=== PATIENT | female | born 1980 | race Caucasian/White ===

== ENCOUNTER → 2018-02-25 13:53 | Outpatient (CLI) | payer OTHER, SELFPAY ==
--- NOTE | 2018-02-25 | DI.US.S_ITS ---
ULTRASOUND OF LEFT BREAST: 02/25/2018 CLINICAL: Diffuse left breast pain. Comparison is made to exams dated: 02/25/2018 mammogram - [facility] and 10/22/2017 ultrasound - [facility]. Color flow ultrasound of the left breast was performed on the area of interest. IMPRESSION: NEGATIVE There is no sonographic evidence of malignancy. There is no mammographic or sonographic abnormality seen in the left breast to correspond with the pain, however, clinical followup is recommended. Return to annual mammogram screening schedule is recommended. This exam was interpreted at Station ID: [id number]. Electronically Signed By: Diane Muniz M.D. lk/:02/25/2018 15:19:34 letter sent: Clinical Evaluation Ultrasound BI-RADS: 1 Negative
--- NOTE | 2018-02-25 | DI.MG.S_ITS ---
BILATERAL DIGITAL DIAGNOSTIC MAMMOGRAM 3D/2D: 02/25/2018 CLINICAL: Left breast pain. Comparison is made to exam dated: 10/22/2017 ultrasound - [facility]. There are scattered fibroglandular elements in both breasts. No significant masses, calcifications, or other findings are seen in either breast. IMPRESSION: INCOMPLETE: NEEDS ADDITIONAL IMAGING EVALUATION There is no mammographic abnormality seen in the left breast to correspond with the pain, however, ultrasound is recommended. This exam was interpreted at Station ID: [id number]. NOTE: For mammograms, a report in lay terms will be sent to the patient. Approximately 15% of breast malignancies will not be visualized mammographically. In the management of a palpable breast mass, a negative mammogram must not discourage biopsy of a clinically suspicious lesion. Electronically Signed By: Diane dunn/santa:02/25/2018 15:00:36 letter sent: Additional Imaging Needed ACR BI-RADS Category 0: Incomplete [id number]
== END ==
PROVIDERS: Visit Provider Surgery
DX: R92.8 Other abnormal and inconclusive findings on diagnostic imaging of breast (principal); N64.4 Mastodynia
CPT/HCPCS: 76642; 77066; G0279

== ENCOUNTER → 2020-04-07 08:43 | Outpatient (CLI) | payer OTHER, SELFPAY ==
--- NOTE | 2020-04-07 | DI.MG.S_ITS ---
BILATERAL DIGITAL DIAGNOSTIC MAMMOGRAM 3D/2D: 04/07/2020 CLINICAL: Bilateral pain and discharge. Comparison is made to exam dated: 02/25/2018 [facility]. There are scattered fibroglandular elements in both breasts. No significant masses, calcifications, or other findings are seen in either breast. IMPRESSION: INCOMPLETE: NEEDS ADDITIONAL IMAGING EVALUATION No suspicious mammographic finding. Ultrasound will be performed at the patient's area of pain/concern. This exam was interpreted at Station ID: [id number]. NOTE: For mammograms, a report in lay terms will be sent to the patient. Approximately 15% of breast malignancies will not be visualized mammographically. In the management of a palpable breast mass, a negative mammogram must not discourage biopsy of a clinically suspicious lesion. Electronically Signed By: Jonathan Morgan M.D. jr/:04/07/2020 09:37:57 copy to: JENNIFER PEMBERTON ACR BI-RADS Category 0: Incomplete [id number]
--- NOTE | 2020-04-07 | DI.US.S_ITS ---
COMPLETE ULTRASOUND OF RIGHT BREAST AND AXILLA: 04/07/2020 CLINICAL: Diffuse right breast pain. Comparison is made to exams dated: 04/07/2020 mammogram, 02/25/2018 mammogram - [facility], and 10/22/2017 ultrasound - [facility]. Color flow and real-time ultrasound of the right breast four quadrants, retroareolar, and axilla regions were performed. Kc scale images of the real-time examination were reviewed. No significant abnormalities were seen sonographically in the right breast or the right axilla. IMPRESSION: NEGATIVE There is no sonographic evidence of malignancy. Return to annual mammogram screening schedule is recommended. This exam was interpreted at Station ID: [id number]. Electronically Signed By: Jonathan Morgan M.D., jr/santa:04/07/2020 10:55:06 copy to: JENNIFER PEM[facility]ERT[facility] letter sent: Normal Exam Ultrasound BI-RADS: 1 Negative
--- NOTE | 2020-04-07 | DI.US.S_ITS ---
ULTRASOUND OF LEFT BREAST: 04/07/2020 CLINICAL: Diffuse left breast pain. Comparison is made to exams dated: 04/07/2020 mammogram, 02/25/2018 ultrasound, 02/25/2018 mammogram - [facility], and 10/22/2017 ultrasound - [facility]. Color flow and real-time ultrasound of the left breast were performed. Kc scale images of the real-time examination were reviewed. There is a 1 cm taller than wide irregular mass with an angular margin in the left breast at 1 o'clock posterior depth (measured 8 cm from the nipple by the consumer marketing manager). This irregular mass is hypoechoic with posterior acoustic shadowing. IMPRESSION: SUSPICIOUS OF MALIGNANCY Mass in the left breast is at a low suspicion for malignancy. Ulrasound guided biopsy is recommended. This exam was interpreted at Station ID: [id number]. Electronically Signed By: Jonathan Morgan M.D. jr/:04/07/2020 10:59:24 copy to: JENNIFER PEMBERT[facility] letter sent: Biopsy Required Ultrasound BI-RADS: 4a Low suspicion for malignancy
== END ==
PROVIDERS: PCP Internal Medicine; Referring Provider Obstetrics & Gynecology; Visit Provider Obstetrics & Gynecology
DX: R92.8 Other abnormal and inconclusive findings on diagnostic imaging of breast (principal); N64.4 Mastodynia; N63.21 Unspecified lump in the left breast, upper outer quadrant
CPT/HCPCS: 76642; 77066; G0279

== ENCOUNTER → 2020-04-21 12:33 | Outpatient (CLI) | payer OTHER, SELFPAY ==
--- NOTE | 2020-04-21 | PATH_ITS ---
[facility] Accession Number: [id number] . 01 Material submitted: . breast - LEFT BREAST MASS 1:00 7 CMFN . 01 Diagnosis: Left Breast, 1 o'clock, 7 cm from Nipple, Core Biopsy: Fibroadenoma. Negative for significant atypia and malignancy. [facility] 04/22/2020 1535 Local . 01 Electronically signed: . Marlene Hoffman MD, Pathologist NPI- [id number] . 01 Gross description: . Received one formalin-filled container, labeled with the patient's name and designated left breast mass 1 o'clock 7 cm FN. The specimen is received with a plastic filter in container, sample loose in container and consists of multiple yellow-zheng portions of tissue which range in size from less than 0.1 cm to 1.2 x 0.5 x 0.4 cm. The specimen filtered and entirely submitted in one cassette. No collection date or time per container. Possible collection date and time per requisition: 04/21/20 at 1350. Total fixation time: Approximately 13 hours. ([id number]) /FRR 04/22/2020 0229 Local . 01 Pathologist provided ICD-10: D24.9 . 01 CPT . 193625 Specimen Comment: A duplicate report has been generated due to demographic updates. Performed at: [address] [address], [place], [place] [id number] MD Demetri Dickson MD Phone: [phone]
--- NOTE | 2020-04-21 12:38 | DI.US.S_ITS ---
ULTRASOUND GUIDED BIOPSY LEFT BREAST USING VACUUM DEVICE WITH MARKING DEVICE INSERTED: 04/21/2020 CLINICAL: Left breast mass. PATIENT CONSENT: Risks (minor bleeding, infection, vasovagal reaction and repeat procedure), benefits and alternatives were explained to the patient and written informed consent was obtained. Correlation is made to exams dated: 04/07/2020 ultrasound, 04/07/2020 mammogram, 02/25/2018 ultrasound, 02/25/2018 mammogram - [facility], and 10/22/2017 ultrasound - [facility]. An ultrasound guided biopsy using real-time ultrasound was performed for the mass located in the left breast at 1 o'clock middle depth. The skin was prepped in the usual manner. Local anesthetic was administered to the access site. A small incision was made in the breast. The abnormality was approached from the lateral aspect. A biopsy needle was placed adjacent to the abnormality under ultrasound guidance. Once the needle was documented to be in the correct location, four specimens were obtained using the Mammotome biopsy system. The patient received additional local anesthetic during the procedure. A clip was inserted into the biopsy cavity. The specimens were sent to the laboratory for pathological analysis. IMPRESSION: ULTRASOUND GUIDED BIOPSY BENIGN Ultrasound guided biopsy of the mass in the left breast at 1 o'clock middle depth was successful. Pathology indicates benign fibroadenoma (FA). Pathology results are concordant with imaging findings. Return to annual screening schedule at age 40 is recommended. This exam was interpreted at Station ID: [id number]. Vineet connolly,shaun/:04/25/2020 14:58:47 copy to: JENNIFER PEMBERT[facility]
--- NOTE | 2020-04-21 12:39 | DI.MG.S_ITS ---
UNILATERAL LEFT DIGITAL DIAGNOSTIC MAMMOGRAM POST-NEEDLE BIOPSY: 04/21/2020 CLINICAL: Left breast mass. Comparison is made to exams dated: 04/07/2020 ultrasound, 04/07/2020 mammogram, and 02/25/2018 mammogram - [facility]. There are scattered fibroglandular elements in left breast. There is a marker clip in the appropriate position in the left breast at 1 o'clock This marker clip placement is at the biopsy site. IMPRESSION: POST PROCEDURE MAMMOGRAM FOR MARKER PLACEMENT There was a successful marker clip placement in the left breast This exam was interpreted at Station ID: [id number]. NOTE: For mammograms, a report in lay terms will be sent to the patient. Approximately 15% of breast malignancies will not be visualized mammographically. In the management of a palpable breast mass, a negative mammogram must not discourage biopsy of a clinically suspicious lesion. Electronically Signed By: Vineet connolly/:04/21/2020 15:13:19 copy to: JENNIFER PEMBERTON ACR BI-RADS Category Post-procedure mammogram for marker placement
== END ==
PROVIDERS: PCP Internal Medicine; Referring Provider Internal Medicine; Visit Provider Obstetrics & Gynecology
DX: D24.2 Benign neoplasm of left breast (principal)
CPT/HCPCS: 19083; 77065

== ENCOUNTER → 2020-06-15 07:56 | Outpatient (CLI) | payer OTHER, SELFPAY ==
--- NOTE | 2020-06-15 | DI.MRI.S_ITS ---
BREAST MRI OF BOTH BREASTS- WITH CAD: 06/15/2020 CLINICAL: Breast MRI. Comparison is made to exams dated: 04/21/2020 mammogram, 04/07/2020 mammogram, and 02/25/2018 mammogram - [facility]. Interpretation of this MRI was correlated with available mammograms, ultrasounds, and clinical information. Informed consent was obtained from the patient. The patient was placed prone in a dedicated breast imaging coil. Precontrast axial STIR and 3D FLASH without fat saturation sequences were obtained. Both before and after bolus injection of contrast, sequential 1-minute axial 3D FLASH with fat saturation sequences for 3 time points, with subtraction images and maximum intensity projections (MIP's) generated. Delayed sagittal FLASH images with fat saturation were also obtained. Computer-aided detection, including computer algorithm analysis of MRI image data for lesion detection and characterization, pharmacokinetic analysis, with further physician review for interpretation, was performed. There is global asymmetry in the right breast, with a greater volume of breast parenchyma which demonstrates a greater degree of enhancement. Are numerous scattered tiny foci of enhancement measuring up to 3-4 millimeters in the right breast. Normal mild background parenchymal enhancement in the left breast. Right breast: No mass or suspicious non masslike enhancement. Normal appearance of the nipple areola complex. No neovascularity or skin thickening. No axillary or internal mammary lymphadenopathy. Left breast: No mass or suspicious non mass enhancement. Biopsy changes related to previous ultrasound-guided vacuum assisted left breast biopsy (pathology results consistent with fibroadenoma). Normal appearance of the nipple areola complex. No neovascularity or skin thickening. No axillary or internal mammary lymphadenopathy. IMPRESSION: NEGATIVE No suspicious abnormality to suggest malignancy. NO finding to explain left breast pain. Expected post-procedural changes related to left breast fibroadenoma biopsy. This exam was interpreted at Station ID: [id number]. Electronically Signed By: Jonathan Morgan M.D. jr/:06/15/2020 17:00:37 copy to: JENNIFER PEMBERTON letter sent: Normal Exam ACR BI-RADS Category 1: Negative [id number]
== END ==
PROVIDERS: PCP Internal Medicine; Referring Provider Internal Medicine; Visit Provider Internal Medicine
DX: N64.52 Nipple discharge (principal); N60.19 Diffuse cystic mastopathy of unspecified breast; N64.4 Mastodynia
CPT/HCPCS: 77049

== ENCOUNTER → 2024-07-10 10:54 | Outpatient (CLI) | payer OTHER, SELFPAY ==
[2024-07-10 12:30] LABS: Vitamin D 25 Hydroxy (D3) 30.5 ng/mL (30.0-100.0)
[2024-07-10 12:36] LABS: Follicle Stimulating Hormone 14.3 mIU/mL; Progesterone, Total 7.88 ng/mL
[2024-07-10 12:52] LABS: Estradiol, Total 79.6 pg/mL
[2024-07-10 13:02] LABS: Vitamin B12 > 1000 pg/mL (239-931)
== END ==
PROVIDERS: PCP Family Medicine; Referring Provider Obstetrics & Gynecology; Visit Provider Obstetrics & Gynecology
DX: R53.83 Other fatigue (principal); N95.1 Menopausal and female climacteric states
CPT/HCPCS: 36415; 82306; 82607; 82670; 83001; 84144; 84402; 84403

== ENCOUNTER → 2024-08-14 09:15 | Outpatient (CLI) | payer OTHER, SELFPAY ==
--- NOTE | 2024-08-14 | DI.US.S_ITS ---
LIMITED ULTRASOUND OF LEFT BREAST: 08/14/2024 CLINICAL: Palpable left breast lump. History of intermittent spontaneous left nipple discharge since 2017, previously characterized as milky, more recently clear discharge. Comparison is made to exams dated: 08/14/2024 mammogram - [facility], 01/31/2023 ultrasound, 08/02/2022 ultrasound, 08/02/2022 mammogram - outside facility, 06/15/2020 breast MRI, and 04/21/2020 mammogram - [facility]. Color flow and real-time ultrasound of the left breast 9 o'clock, and retroareolar regions were performed. Kc scale images of the real-time examination were reviewed. No sonographic abnormality is seen in the area of clinical palpable concern in the left breast at 9 o'clock, 1 cm from the nipple. No sonographic abnormality in the area of clinical concern and nipple discharge in the left retroareolar region. IMPRESSION: NEGATIVE No sonographic abnormality in the areas of clinical concern. No mammographic or sonographic evidence of malignancy. Recommend routine annual mammogram screening in 1 year. Clinical follow-up is also recommended, and further management of palpable abnormalities or other focal signs or symptoms should be based on the results of clinical evaluation. If palpable abnormality or other concerning symptom persists or progresses, further clinical evaluation should be considered. Clinical follow-up for nipple discharge is also recommended. If nipple discharge persists and/or increases in clinical suspicion, further clinical evaluation should be considered. Findings and recommendations were conveyed to the patient during today's evaluation. This exam was interpreted at Station ID: [id number]. Electronically Signed By: Lilly Joe M.D., Ph.D. eb/:08/14/2024 13:18:32 letter sent: Clinical Evaluation ACR BI-RADS Category 1: Negative
--- NOTE | 2024-08-14 | DI.MG.S_ITS ---
BILATERAL DIGITAL DIAGNOSTIC MAMMOGRAM 3D/2D: 08/14/2024 CLINICAL: Left breast lump and nipple discharge. Comparison is made to exams dated: 08/02/2022 mammogram - outside facility, 06/15/2020 breast MRI, and 04/07/2020 mammogram - [facility]. There are scattered areas of fibroglandular density (category b / 25%-50% glandular tissue). A BB marker was placed in the area of clinical palpable concern in the left breast, and no mammographic abnormality is identified. Additional mammographic views of the left subareolar region demonstrate no mammographic abnormality. No significant masses, calcifications, or other findings are seen in either breast. IMPRESSION: INCOMPLETE: NEED ADDITIONAL IMAGING EVALUATION No mammographic abnormality in the area of clinical concern in the left breast. Recommend further evaluation with targeted breast ultrasound, which will immediately follow this exam. Based on the Tyrer Cuzick model (a risk assessment model) the patient's lifetime risk is 10.8% and her 10 year risk is 1.6%. According to the ACR, ACS, and NCCN guidelines, an annual breast MRI exam along with mammogram is recommended if the patient's lifetime risk is 20% or greater. This exam was interpreted at Station ID: [id number]. NOTE: For mammograms, a report in lay terms will be sent to the patient. Approximately 15% of breast malignancies will not be visualized mammographically. In the management of a palpable breast mass, a negative mammogram must not discourage biopsy of a clinically suspicious lesion. Electronically Signed By: Lilly Joe M.D., Ph.D. eb/:08/14/2024 10:24:57 letter sent: Additional Imaging Needed ACR BI-RADS Category 0: Incomplete: Need Additional Imaging Evaluation
[2024-08-15 07:13] LABS: Thyroid Peroxidase Antibodies 14 IU/mL (0-34)
== END ==
PROVIDERS: PCP Family Medicine; Referring Provider Specialist; Visit Provider Family Medicine
DX: N63.20 Unspecified lump in the left breast, unspecified quadrant (principal); R53.83 Other fatigue; N95.1 Menopausal and female climacteric states
CPT/HCPCS: 36415; 76642; 77066; 86376; G0279

== ENCOUNTER → 2024-10-22 08:04 | Outpatient (CLI) | payer OTHER, SELFPAY | PROVIDERS: PCP Family Medicine; Referring Provider Family Medicine; Visit Provider Family Medicine | DX: R06.00 Dyspnea, unspecified (principal) | CPT/HCPCS: 94060; 94726; 94729 ==

== ENCOUNTER 2024-11-02 15:44 | Emergency (ER) | payer OTHER, SELFPAY ==
[2024-11-02 15:58] VITALS: BP 145/72; PULSE 88; RESP 18; TEMP 36.7; O2SAT 98; BMI 39.1
--- NOTE | 2024-11-02 16:52 | DI.RAD.S_ITS ---
PROCEDURE: XR CHEST 1V INDICATIONS: cough TECHNIQUE: One view of the chest was acquired. COMPARISON: None. FINDINGS: Surgical changes and devices: None. Lungs and pleura: Lungs are clear. No pleural effusions or pneumothorax. Mediastinum: Mediastinal contours appear normal. Heart size is normal. Bones and chest wall: No suspicious bony lesions. Overlying soft tissues appear unremarkable. IMPRESSION: No acute cardiopulmonary abnormality is seen. Dictated by: Yan Fields M.D. on 11/02/2024 at 18:27 Approved by: Yan Fields M.D. on 11/02/2024 at 18:27
[2024-11-02 17:12] LABS: Influenza A - CEPHEID Flu A NEGATIVE (NEGATIVE); Influenza B - CEPHEID Flu B NEGATIVE (NEGATIVE); Respiratory Syncytial Virus Negative (Negative)
[2024-11-02 17:13] LABS: COVID-19 CEPHEID 4-PLEX PCR Negative (Negative)
[2024-11-02 17:26] LABS: Strep Grp A by PCR Rapid Negative (Negative)
[2024-11-02] MEDS: BENZONATATE 100 MG CAPSULE 200 MG PO (17:30)
[2024-11-02 19:10] VITALS: BP 130/65; PULSE 86; RESP 16; O2SAT 99
--- NOTE | 2024-11-02 19:20 | PC.NURSE ---
I called [facility] [place] and talked to pharmacist for call in RX of Benzonatate 200mg TID PRN qty 30
--- NOTE | 2024-11-03 15:31 | ED.URI ---
HPI - URI/Sore Throat <Ten Cisneros PA-C - Last Filed: 11/03/24 15:37> General Chief Complaint: Upper Respiratory Symptoms Stated Complaint: Upper resp symptoms Time Seen by Provider: 11/02/24 16:11 Source: patient Mode of arrival: Ambulatory History of Present Illness HPI Narrative: 44-year-old female presents to the ED with URI symptoms for a few days. Patient complains of a sore throat, cough, ear fullness, malaise. Patient states she had some fever 2 days ago, has been fever free since then. No nausea, vomiting, chest pain, shortness of breath, lightheadedness, dizziness, syncope. Related Data Home Medications Medication Instructions Recorded Confirmed magnesium chelated blend PO 12/07/21 probiotics PO 12/07/21 aspirin 81 mg tablet,delayed 81 mg PO DAILY 07/10/24 07/10/24 release (Adult Low Dose Aspirin) clopidogrel 75 mg tablet (Plavix) 75 mg PO DAILY 07/10/24 07/10/24 Allergies Allergy/AdvReac Type Severity Reaction Status Date / Time Penicillins [PENICILLINS] Allergy Severe ANAPHYLAXIS Unverified 07/10/24 10:27 levofloxacin [From LEVAQUIN] Allergy Unknown RASH Unverified 07/10/24 10:27 Review of Systems <Ten Cisneros PA-C - Last Filed: 11/03/24 15:37> Constitutional Constitutional: Denies chills, Reports fatigue, Denies fever(s), Denies frequent falls, Denies lethargy and Denies weakness Eyes Eyes: Denies change in vision, Denies eye discharge, Denies irritation and Denies loss of vision ENT Ears, Nose, Mouth, and Throat: Denies change in voice, Denies dizziness, Denies neck pain, Reports sore throat and Denies throat swelling Cardiovascular Cardiovascular: Denies chest pain, Denies irregular heart rhythm, Denies lightheadedness, Denies palpitations, Denies dyspnea, Denies dyspnea on exertion and Denies orthopnea Respiratory Respiratory: Reports cough, Denies dyspnea, Denies dyspnea on exertion and Denies wheezing Gastrointestinal Gastrointestinal: Denies abdominal pain, Denies change in bowel habits, Denies diarrhea, Denies nausea and Denies vomiting Musculoskeletal Musculoskeletal: Denies neck pain and Denies numbness Integumentary/Breasts Skin/Breast: Denies pruritus, Denies erythema, Denies rash and Denies wounds Neurologic Neurologic: Denies behavioral changes, Denies confusion, Denies dizziness, Denies frequent falls, Denies loss of vision, Denies numbness and Denies weakness Psychiatric Psychiatric: Denies anxiety, Denies behavioral changes, Denies confusion, Denies depression, Denies homicidal ideation and Denies suicidal ideation Endocrine Endocrine: Reports fatigue, Denies flushing and Denies palpitations Hematologic/Lymphatic Hematologic/Lymphatic: Denies easy bruising Allergic/Immunologic Allergic/Immunologic: Denies urticaria, Denies throat swelling and Denies wheezing Patient History <Ten Cisneros PA-C - Last Filed: 11/03/24 15:37> Medical History Perioral dermatitis (~2017) Chronic cough (~2017) Anxiety (~2017) Migraines (~2017) Headache (~2017) Thoracic outlet syndrome (~2017) Chronic back pain (~2017) Carpal tunnel syndrome (~2017) Measles Chicken pox Anemia Vertigo (~2017) Tinnitus (~2017) Recurrent sinusitis (~2017) Heavy menstrual period (~2017) GERD (gastroesophageal reflux disease) (~2017) Surgical History Anesthesia History of tonsillectomy and adenoidectomy (~11/1993) History of dilatation and curettage (~05/2015) History of suburethral sling procedure (~02/2019) History of hysterectomy (~10/2018) Family History Father Cancer Mother Scleroderma COPD (chronic obstructive pulmonary disease) Raynaud's disease Calcinosis Grandfather History of heart disease Grandmother Cancer Grandfather Cancer Grandmother Liver cirrhosis Social History Smoking Status: Never smoker Smoking Status: Never smoker Exam <Ten Cisneros PA-C - Last Filed: 11/03/24 15:37> Narrative Exam Narrative: Const General:?cooperative, healthy appearing and comfortable HENWA Head:?normal to inspection Ears:?hearing grossly normal bilaterally; bilateral tympani normal Nose:?external nose normal Face and sinus:?normal facial exam and sinuses nontender Mouth:?oral mucosae normal Throat:?posterior oropharynx erythematous; airway is patent Eyes General:?appearance normal, both eyes and all related structures Neck Neck:?normal visual inspection and no lymphadenopathy noted Resp Effort & Inspection:?normal respiratory effort Auscultation:?clear to auscultation bilaterally Cardio Rate:?regular rate Rhythm:?regular rhythm Neuro General:?patient alert, patient awake and patient oriented x3 Initial Vital Signs Initial Vital Signs: Vital Signs Temperature 98.1 F 11/02/24 15:58 Pulse Rate 88 11/02/24 15:58 Respiratory Rate 18 11/02/24 15:58 Blood Pressure 145/72 H 11/02/24 15:58 Pulse Oximetry 98 11/02/24 15:58 Oxygen Delivery Method Room Air 11/02/24 15:58 <Marivel Rodriguez DO - Last Filed: 11/03/24 19:06> Initial Vital Signs Initial Vital Signs: Vital Signs Temperature 98.1 F 11/02/24 15:58 Pulse Rate 88 11/02/24 15:58 Respiratory Rate 18 11/02/24 15:58 Blood Pressure 145/72 H 11/02/24 15:58 Pulse Oximetry 98 11/02/24 15:58 Oxygen Delivery Method Room Air 11/02/24 15:58 Course <Ten Cisneros PA-C - Last Filed: 11/03/24 15:37> Orders Ordered: Discontinued Medications Benzonatate (Benzonatate 100 Mg Capsule) 200 mg PO NOW ONE Stop: 11/02/24 17:20 Last Admin: 11/02/24 17:30 Dose: 200 mg Documented By: SPF <Marivel Rodriguez DO - Last Filed: 11/03/24 19:06> Orders Ordered: Discontinued Medications Benzonatate (Benzonatate 100 Mg Capsule) 200 mg PO NOW ONE Stop: 11/02/24 17:20 Last Admin: 11/02/24 17:30 Dose: 200 mg Documented By: SPF MDM - URI/Sore Throat <Ten Cisneros PA-C - Last Filed: 11/03/24 15:37> Lab Data Labs: Lab Results 11/02/24 11/02/24 Range/Units 16:30 16:55 SARS-CoV-2 (PCR) Negative (Negative) Influenza A (RT-PCR) Flu a negative (NEGATIVE) Influenza B (RT-PCR) Flu b negative (NEGATIVE) RSV (PCR) Negative (Negative) Group A Strep (PCR) Negative (Negative) MDM Narrative Medical decision making narrative: 44-year-old female presents to the ED with URI symptoms for a few days. Chest x-ray was obtained which was without acute cardiopulmonary findings. Respiratory panel was negative for COVID-19, influenza, RSV. Strep POC was negative as well. Sample sent for culture. Discussed findings with patient. Recommend supportive measures. Patient's cough significantly improved with Tessalon Perles. Tessalon Perles prescribed. Recommend other OTC cough and cold remedies. Recommend plenty of hydration. Recommend follow-up with PCP. ED return precautions were discussed with patient. Patient verbalized understanding. Medical records reviewed: Yes <Marivel Rodriguez DO - Last Filed: 11/03/24 19:06> Lab Data Labs: Lab Results 11/02/24 11/02/24 Range/Units 16:30 16:55 SARS-CoV-2 (PCR) Negative (Negative) Influenza A (RT-PCR) Flu a negative (NEGATIVE) Influenza B (RT-PCR) Flu b negative (NEGATIVE) RSV (PCR) Negative (Negative) Group A Strep (PCR) Negative (Negative) Discharge Plan Departure Patient Disposition: Home Clinical Impression: URI (upper respiratory infection) Prescriptions: No Action magnesium chelated blend PO probiotics PO clopidogrel [Plavix] 75 mg tablet 75 mg PO DAILY aspirin [Adult Low Dose Aspirin] 81 mg tablet,delayed release (DR/EC) 81 mg PO DAILY Stand Alone Forms: Patient Portal/API/Survey ED Sign-out <Marivel Rodriguez DO - Last Filed: 11/03/24 19:06> Cosign ED Attending Cosignature Attestation: I was immediately available in the department for consultation.
== END 2024-11-02 19:10 | disposition home or self-care (01) ==
PROVIDERS: Emergency Provider Student in an Organized Health Care Education/Training Program; PCP Family Medicine
DX: J06.9 Acute upper respiratory infection, unspecified (principal)
CPT/HCPCS: 0241U; 71045; 87070; 87651; 99283

== ENCOUNTER → 2024-12-25 08:18 | Outpatient (CLI) | payer OTHER, SELFPAY ==
--- NOTE | 2024-12-25 08:19 | DI.NM.S_ITS ---
PROCEDURE: NM EXERCISE TREADMILL NON NUC COMPARISON: None. INDICATIONS: SIGNIFICANT EXERTIONAL DYSPNEA AND CHEST PAIN FINDINGS: Patient exercised per the standard Josep protocol. Total exercise time was 9 minutes and 57 seconds. Test was terminated secondary to fatigue. Maximal heart rate attained is 190 bpm which is 107% of maximum predicted heart rate. Maximum blood pressure was 152/86[place] [address]. JS -15%. 12.8 METS. No ischemic changes noted. No arrhythmias present. Normal heart rate and blood pressure response to exercise. No chest pains voiced. IMPRESSION: 1. Negative exercise treadmill stress test for ischemia. 2. Good exercise tolerance. Dictated by: Javier Pérez M.D. on 12/25/2024 at 17:04 Approved by: Javier Pérez M.D. on 12/25/2024 at 17:06
== END ==
LOC: NUCM 08:19
PROVIDERS: PCP Family Medicine; Referring Provider Family Medicine; Visit Provider Family Medicine
DX: R06.09 Other forms of dyspnea (principal)
CPT/HCPCS: 93017